=== PATIENT | female | born 1995 | race Hispanic/Latino ===

== ENCOUNTER 2024-09-09 18:00 | Inpatient (IN) | payer BC ==
[2024-09-09 19:45] VITALS: BMI 32.5
[2024-09-09] MEDS ORDERED: Ibuprofen 800 MG TAB PO PRN (21:11)
[2024-09-09] MEDS ORDERED: Misoprostol 200 MCG TAB PR PRN (21:11)
[2024-09-09] MEDS ORDERED: Lidocaine 1% (PF) 30 ML VIAL SC PRN (21:11)
[2024-09-09] MEDS ORDERED: Carboprost 250 MCG/ML AMP IM PRN (21:11)
[2024-09-09] MEDS ORDERED: Promethazine HCl 25 MG/ML VIAL IM PRN (21:11)
[2024-09-09] MEDS ORDERED: hydrALAZINE 20 MG/ML VIAL SLOW IVP PRN (21:11)
[2024-09-09] MEDS ORDERED: Ondansetron PF 4 MG/2 ML Vial IVP PRN (21:11)
[2024-09-09] MEDS ORDERED: Acetaminophen 500 MG TAB PO PRN (21:11)
[2024-09-09] MEDS ORDERED: Methylergonovine 0.2 MG/ML VIAL IM PRN (21:11)
[2024-09-09] MEDS ORDERED: Tranexamic Acid 1,000 MG/10 ML VIAL IVP PRN (21:11)
[2024-09-09] MEDS ORDERED: Oxytocin 30 units/NS 500 ML 500 ML IV SCH ×2 (21:15)
[2024-09-09] MEDS ORDERED: Lactated Ringer's 1,000 ML IV SCH (21:15)
[2024-09-09] MEDS: fentaNYL 50 mcg/mL 1 mL Vial SLOW IVP PRN (21:35)
[2024-09-09 21:42] LABS: Hematocrit 36.9 % (34.9-44.5); Hemoglobin 12.5 g/dL (12.0-15.5); Mean Corpuscular HGB CONC 33.9 g/dL (32.0-36.0); Mean Corpuscular Hemoglobin 30.1 pg (27.0-33.0); Mean Corpuscular Volume 88.9 fL (81.6-98.3); Mean Platelet Volume 12.8 fL (7.4-10.4); Platelet Count 224 10x3/uL (150-450); RBC Distribution Width 14.6 % (11.5-14.5); Red Blood Cell (RBC) Count 4.15 10x6/uL (3.90-5.03); White Blood Cell (WBC) Count 8.3 10x3/uL (3.5-10.5)
[2024-09-09 22:14] LABS: HBsAg Index 0.18 S/CO (0-0.99); Hep B Surf Ag - L&D Non-Reactive S/CO (NonReactive)
[2024-09-09 22:15] LABS: Syphilis Antibody Nonreactive (Nonreactive); Syphilis Antibody Index 0.06 S/CO (<1.00 Non-Reactive)
[2024-09-10] MEDS: fentaNYL/Ropivacaine Epidural 100 ML ONE (03:02)
[2024-09-10] MEDS ORDERED: diphenhydrAMINE 50 MG/ML VIAL IVP PRN (03:20)
[2024-09-10] MEDS ORDERED: Naloxone HCl 0.4 mg/ml Vial IVP PRN ×2 (03:20)
[2024-09-10] MEDS ORDERED: Ondansetron PF 4 MG/2 ML Vial IVP PRN (03:20)
[2024-09-10] MEDS ORDERED: Lactated Ringer's 500 ML IV PRN (03:20)
[2024-09-10] MEDS ORDERED: Promethazine HCl 25 MG/ML VIAL IM PRN (03:20)
[2024-09-10] MEDS ORDERED: ePHEDrine Sulfate 50 MG/10 ML VIAL SLOW IVP PRN (03:20)
[2024-09-10] MEDS ORDERED: Moisturizing Cream (Eucerin) 113 GM JAR TOP PRN (03:20)
[2024-09-10] MEDS ORDERED: Communication Order-Pharmacy FS SCH (03:30)
[2024-09-10 09:52] LABS: HIV (1/2) Antibody/Antigen Non-Reactive (NonReactive); HIV 1/2 INDEX 0.11 S/CO (<1.00)
[2024-09-10] MEDS: fentaNYL 2 mcg/Ropivacaine 0.2% Epidural 100 ML CADD EPIDURAL SCH (15:49)
[2024-09-10] MEDS ORDERED: Bicitra 30 ML UDCUP PO PRN (22:30)
[2024-09-10] MEDS ORDERED: Azithromycin 500 MG in Sodium Chloride 0.9% 250 ML 250 ML IVPB SCH (22:30)
[2024-09-10] MEDS ORDERED: Famotidine/PF 20 mg/2ml Vial SLOW IVP PRN (22:30)
[2024-09-10] MEDS: CEFAZOLIN 2 GM in Sodium Chloride 0.9% 100 ML IVPB SCH (22:35)
[2024-09-10 23:42] LABS: Analyzer IN Cardio CS NICU; Critical Notified By: clumpkins rt; RapidComm Collect By nvr.bm13
[2024-09-10 23:46] LABS: Analyzer IN Cardio CS NICU; Critical Notified By: clumpkins rt; RapidComm Collect By nvr.bm13
[2024-09-10] MEDS ORDERED: Diphenoxylate HCl/Atropine Tablet PO PRN (23:59)
[2024-09-11 00:14] LABS: Hematocrit 31.4 % (34.9-44.5); Hemoglobin 10.5 g/dL (12.0-15.5)
[2024-09-11] MEDS ORDERED: Naloxone HCl 0.4 mg/ml Vial IV PRN (01:03)
[2024-09-11] MEDS ORDERED: Naloxone HCl 0.4 mg/ml Vial IVP PRN ×2 (01:03)
[2024-09-11] MEDS ORDERED: Promethazine HCl 25 MG/ML VIAL IM PRN ×2 (01:03→01:48)
[2024-09-11] MEDS ORDERED: Meperidine HCl/PF 25 MG (1 mL) VIAL SLOW IVP PRN (01:03)
[2024-09-11] MEDS ORDERED: Moisturizing Cream (Eucerin) 113 GM JAR TOP PRN (01:03)
[2024-09-11] MEDS ORDERED: Ondansetron PF 4 MG/2 ML Vial IVP PRN ×3 (01:03→01:48)
[2024-09-11] MEDS ORDERED: diphenhydrAMINE 50 MG/ML VIAL IVP PRN (01:03)
[2024-09-11] MEDS ORDERED: Communication Order-Pharmacy FS SCH (01:15)
[2024-09-11] MEDS: Ketorolac Tromethamine 30 MG (1 mL) VIAL IVP SCH (01:19)
[2024-09-11] MEDS: Diphenoxylate HCl/Atropine Tablet PO PRN (01:40)
[2024-09-11] MEDS: fentaNYL 50 mcg/mL 1 mL Vial SLOW IVP PRN (01:40)
[2024-09-11] MEDS ORDERED: hydrALAZINE 20 MG/ML VIAL SLOW IVP PRN (01:48)
[2024-09-11] MEDS ORDERED: Misoprostol 200 MCG TAB PR PRN (01:48)
[2024-09-11] MEDS ORDERED: Acetaminophen 325 MG TAB PO PRN (01:48)
[2024-09-11] MEDS ORDERED: Methylergonovine 0.2 MG/ML VIAL IM PRN (01:48)
[2024-09-11] MEDS ORDERED: Boostrix 0.5 ML (Tdap) VIAL (>/=7 yrs of age) IM ONE (01:48)
[2024-09-11] MEDS ORDERED: Oxytocin 30 units/NS 500 ML 500 ML IV SCH (02:00)
[2024-09-11 02:05] LABS: D-Dimer Test 7.43 mcg/mL (0.19-0.50); PTT 26.7 sec (22.0-33.0); Prothrombin Time 10.5 sec (9.5-12.1)
[2024-09-11] MEDS: HYDROmorphone 0.5 MG/0.5 ML SYRINGE SLOW IVP PRN (02:44)
[2024-09-11] MEDS: fentaNYL 50 mcg/mL 1 mL Vial ONE (05:33)
[2024-09-11] MEDS: CEFAZOLIN 2 GM VIAL ONE (05:33)
[2024-09-11] MEDS: Lidocaine 2% MPF 10 ML AMP (For Epidural Use) ONE (05:33)
[2024-09-11] MEDS: Azithromycin 500 MG VIAL ONE (05:33)
[2024-09-11] MEDS: Oxytocin 10 UNITS/ML VIAL ONE ×2 (05:34)
[2024-09-11] MEDS: Morphine PF 10 MG/10 ML VIAL ONE (05:34)
[2024-09-11] MEDS: Promethazine HCl 25 MG/ML VIAL ONE (05:34)
[2024-09-11] MEDS: PHENYLEPHRINE-NS 100 MCG/ML 10 ML SYRINGE ONE (05:34)
[2024-09-11] MEDS: Famotidine/PF 20 mg/2ml Vial ONE (05:34)
[2024-09-11] MEDS: KETAMINE 100 MG/ML (5ML VIAL) ONE (05:34)
[2024-09-11] MEDS: Tranexamic Acid 1,000 MG/10 ML VIAL ONE ×2 (05:34)
[2024-09-11] MEDS: Ondansetron PF 4 MG/2 ML Vial ONE (05:34)
[2024-09-11] MEDS: Ferrous Sulfate 325 MG TAB PO SCH (07:14)
[2024-09-11] MEDS: Ketorolac Tromethamine 30 MG (1 mL) VIAL IVP PRN (08:55)
[2024-09-11] MEDS: Prenatal Vitamin 1 TAB PO SCH (08:56)
[2024-09-11] MEDS: Acetaminophen 325 MG TAB PO PRN (08:56)
[2024-09-11] MEDS: Docusate 100 MG CAP PO SCH (08:56)
[2024-09-11] MEDS: Simethicone Chewable 80 MG TAB PO PRN (08:56)
[2024-09-11] MEDS: HYDROcodone/Acetaminophen 5/325 mg Tablet PO SCH (11:41)
[2024-09-11] MEDS: HYDROcodone/Acetaminophen 5/325 mg Tablet PO PRN (12:52)
[2024-09-11 17:20] LABS: Hematocrit 26.4 % (34.9-44.5); Hemoglobin 8.9 g/dL (12.0-15.5)
[2024-09-12 04:59] LABS: Hematocrit 27.1 % (34.9-44.5); Mean Corpuscular HGB CONC 33.2 g/dL (32.0-36.0); Mean Corpuscular Hemoglobin 29.6 pg (27.0-33.0); Mean Corpuscular Volume 89.1 fL (81.6-98.3); Platelet Count 183 10x3/uL (150-450); Red Blood Cell (RBC) Count 3.04 10x6/uL (3.90-5.03); White Blood Cell (WBC) Count 12.8 10x3/uL (3.5-10.5)
[2024-09-12] MEDS: Ibuprofen 800 MG TAB PO SCH (05:13)
[2024-09-12] MEDS: HYDROcodone/Acetaminophen 5/325 mg Tablet PO PRN (13:48)
[2024-09-13 07:53] VITALS: BP 132/79; TEMP 98.2
== END 2024-09-13 11:35 | disposition home or self-care (01) | DRG 787 ==
LOC: CSHLD 18:20 → CSHPP 09-11 04:55
PROVIDERS: ADMIT Emergency Medicine; ATTEND Emergency Medicine
PROC: 10D00Z1 Extraction of Products of Conception, Low, Open Approach (ICD-10-PCS; principal; 2024-09-09)
PROC: 30233N1 Transfusion of Nonautologous Red Blood Cells into Peripheral Vein, Percutaneous Approach (ICD-10-PCS; 2024-09-11)
PROC: 10907ZC Drainage of Amniotic Fluid, Therapeutic from Products of Conception, Via Natural or Artificial Opening (ICD-10-PCS; 2024-09-11)
PROC: 10H07YZ Insertion of Other Device into Products of Conception, Via Natural or Artificial Opening (ICD-10-PCS; 2024-09-11)
DX: O34.211 Maternal care for low transverse scar from previous cesarean delivery (principal); D62 Acute posthemorrhagic anemia; O72.1 Other immediate postpartum hemorrhage; Z3A.39 39 weeks gestation of pregnancy; Z37.0 Single live birth; O99.02 Anemia complicating childbirth; O32.4XX0 Maternal care for high head at term, not applicable or unspecified
CPT/HCPCS: 36415; 36430; 51702; 82805; 85014; 85018; 85027; 85049; 85300; 85362; 85384; 85610; 85730; 86780; 86850; 86900; 86901; 87340; 87389; 88307; J1170; J1885; J2274; J2405; J2550; J2590; J3010; J3490; P9016